=== PATIENT | male | born 1985 | race Caucasian/White ===

== ENCOUNTER → 2019-01-29 | Outpatient (CLI) | payer BC | LOC: COL.RAD 07:02 | DX: R59.0 Localized enlarged lymph nodes (principal); R10.32 Left lower quadrant pain | CPT/HCPCS: Q9967 ==

== ENCOUNTER 2021-10-06 07:36 | Day surgery (SDC) | payer BC ==
[~2021-10-06] VITALS: Ht 182.9 cm; Wt 97.7 kg
[2021-10-06 08:10] LABS: BASO % 0.3 % (0.0-2.0); EOS # 0.2 K/mm3 (0.0-0.7); EOS % 1.7 % (0.0-4.0); GRAN # 6.4 K/mm3 (1.4-6.5); GRAN % 74.4 % (42.2-75.2); HEMATOCRIT 44.3 % (42.0-52.0); HEMOGLOBIN 15.1 g/dl (13.5-18.0); LYMPH # 1.4 K/mm3 (1.2-3.4); LYMPH % 16.1 % (20.0-51.0); MEAN CELL VOLUME 87 fl (80.0-100.0); MEAN CORPUSCULAR HEMOGLOBIN 30 pg (27-31); MEAN CORPUSCULAR HGB CONC 34 g/dl (33.0-37.0); MEAN PLATELET VOLUME 10.9 fl (7.4-10.4); MONO # 0.6 K/mm3 (0.1-0.6); MONO % 7.3 % (1.7-9.3); PLATELET COUNT 166 K/mm3 (130-400); RED BLOOD COUNT 5.08 M/mm3 (4.20-5.60); REDCELL DISTRIBUTION WIDTH-CV 12.2 % (11.5-14.5)
[2021-10-06 08:25] LABS: ALBUMIN 4.2 gm/dL (3.5-5.0); BILIRUBIN,TOTAL 1.2 mg/dL (0.2-1.2); CALCIUM 9.6 mg/dL (8.4-10.2); CREATININE, serum 1.22 mg/dL (0.72-1.25); POTASSIUM 4.5 mmol/L (3.5-4.5); TOTAL PROTEIN 7.4 gm/dL (6.2-8.1)
[2021-10-06] MEDS ORDERED: NORCO 325 MG-51 TAB PO (13:03)
[2021-10-06 13:23] VITALS: TEMP 98.4
[2021-10-06 13:30] VITALS: BP 125/78; PULSE 76
--- NOTE | 2021-10-06 13:30 | NUR ---
Patient to room 4 per cart from PACU accompanied Rahel MUNOZ and is awake and alert. IV fluids infusing and site is free of redness or swelling. Exofin skin glue covering abdominal incisions x3 with wound edges well approximated. Spouse in room. Patient denies pain or nausea. Allowed to rest. Tolerates ice chips.
[2021-10-06 13:45] VITALS: BP 122/76; PULSE 69
--- NOTE | 2021-10-06 13:45 | NUR ---
Resting and offers no complaints of pain or nausea.
[2021-10-06 14:00] VITALS: BP 118/80; PULSE 53
--- NOTE | 2021-10-06 14:00 | NUR ---
Continues to rest without complaints of pain or nausea.
[2021-10-06 14:15] VITALS: BP 138/75; PULSE 63
--- NOTE | 2021-10-06 14:15 | NUR ---
Eating crackers, muffin, and drinking water. Denies nausea.
--- NOTE | 2021-10-06 14:25 | NUR ---
Medicated with [place] 5mg one tab for incisional soreness.
[2021-10-06 14:30] VITALS: BP 127/75; PULSE 67
--- NOTE | 2021-10-06 14:30 | NUR ---
Resting and denies nausea.
--- NOTE | 2021-10-06 14:43 | NUR ---
IV to INT and assisted up to the bathroom. Complains of slight dizziness with movement. Does tolerate activity well.
--- NOTE | 2021-10-06 15:00 | NUR ---
Patient voided and returns to room. Dresses self. INT discontinued and site is free of redness or swelling.
--- NOTE | 2021-10-06 15:25 | NUR ---
Dismissal instructions given and voices understanding of home cares and follow up as needed.
--- NOTE | 2021-10-06 15:31 | NUR ---
Patient dismissed to home driven by spouse and taken to the emergency room entrance by wheelchair, assisted into private vehicle with dimissal instructions in hand.
== END 2021-10-06 15:31 | disposition home or self-care (01) ==
LOC: COL.ER 07:36 → SDCO 13:04
PROVIDERS: Personal Emergency Response Attendant
DX: K35.80 Unspecified acute appendicitis (principal); F17.210 Nicotine dependence, cigarettes, uncomplicated
CPT/HCPCS: J0690; J1100; J1170; J2270; J2405; J2543; J2704; J3010; J3480; J7030; Q9967